=== PATIENT | male | born 1995 | race Caucasian/White ===

== ENCOUNTER 2017-09-01 09:33 | Emergency (ER) | payer SELFPAY ==
[2017-09-01 09:42] VITALS: TEMP 97.6; BMI 34.3
--- NOTE | 2017-09-01 09:56 | PDOC ---
History of Present Illness - General History Source: Patient, EMS - History of Present Illness Timing/Duration: other Associated Symptoms: denies: chest pain, fever/chills, headaches, nausea/ vomiting, shortness of breath <Maicol Cuellar - Last Filed: 09/01/17 10:34> <Windy Stevens - Last Filed: 09/01/17 11:51> - General Chief Complaint: Alcohol intoxication Stated Complaint: Alcohol intoxication Time Seen by Provider: 09/01/17 09:38 Past History - Past Medical History COPD: No Thyroid Disease: No - Suicide/Smoking/Psychosocial Hx Smoking History: Never smoked Have you smoked in the past 12 months: No Information on smoking cessation initiated: No Hx Alcohol Use: No Drug/Substance Use Hx: No Substance Use Type: Alcohol <Maicol Cuellar - Last Filed: 09/01/17 10:34> <Windy Stevens - Last Filed: 09/01/17 11:51> - Past Medical History Allergies/Adverse Reactions: Allergies Allergy/AdvReac Type Severity Reaction Status Date / Time No Known Allergies Allergy Verified 09/01/17 09:42 Review of Systems - Review of Systems Constitutional: No: Chills, Fever Respiratory: No: Shortness of Breath Cardiac (ROS): No: Chest Pain Neurological: No: Headache, Dizziness <Maicol Cuellar Last Filed: 09/01/17 10:34> *Physical Exam - Vital Signs Last Vital Signs Temp Pulse Resp BP Pulse Ox 97.6 F 109 H 18 148/86 100 09/01/17 09:37 09/01/17 09:37 09/01/17 09:37 09/01/17 09:37 09/01/17 09:37 - Physical Exam General Appearance: Yes: Appropriately Dressed, Alcohol on Breath HEENT: positive: Normal Voice Neck: positive: Supple Respiratory/Chest: positive: Lungs Clear, Normal Breath Sounds. negative: Respiratory Distress Cardiovascular: positive: Regular Rate, S1, S2 Gastrointestinal/Abdominal: positive: Soft. negative: Tender Integumentary: positive: Dry, Warm Neurologic: positive: Fully Oriented, Alert, Other (no tremors) <Maicol Cuellar Last Filed: 09/01/17 10:34> - Vital Signs Last Vital Signs Temp Pulse Resp BP Pulse Ox 97.6 F 95 H 16 130/82 100 09/01/17 09:37 09/01/17 10:35 09/01/17 10:35 09/01/17 10:35 09/01/17 10:35 <Windy Stevens - Last Filed: 09/01/17 11:51> Medical Decision Making - Medical Decision Making 09/01/17 09:51 22-year-old male denies any past medical history, brought in by EMS for alcohol intoxication. As per EMT report, family opened door to apt this am and found patient intoxicated and sleeping in front of apartment door and for unclear reasons called EMS to bring patient to the ER. Pt does report drinking rum early this am but denies having a h/o ETOH abuse. Denies any fall. No CLARK, dizziness, n/v or abdominal pain. Denies any illicit drugs See exam ETOH intox Mildly tachy but otherwise stable w/ no tremors and no e/o head injury A&O x 3 and stable on feet -period of obs for sobriety in ED -watch for signs of withdrawal 09/01/17 09:57 09/01/17 10:34 Pt requesting to be discharged. Is steady on his feet and remains alert and oriented. Rpt HR done by me at bedside is 100. Pt stable for discharge at this time 09/01/17 10:34 <Maicol Cuellar - Last Filed: 09/01/17 10:34> *DC/Admit/Observation/Transfer <Maicol Cuellar - Last Filed: 09/01/17 10:34> - Attestations Physician Attestion: I reviewed the case with the mid-level practitioner and agree with the mid- level practitioner's assessment, diagnosis and disposition. <Windy Stevens - Last Filed: 09/01/17 11:51> Diagnosis at time of Disposition: Alcohol intoxication Qualifiers: Complication of substance-induced condition: uncomplicated Qualified Code(s): F10.920 - Alcohol use, unspecified with intoxication, uncomplicated - Discharge Dispostion Disposition: HOME Condition at time of disposition: Improved - Patient Instructions Printed Discharge Instructions: DI for Alcohol Abuse Additional Instructions: Please follow-up with your primary physician - Post Discharge Activity Forms/Work/School Notes: Back to Work
[2017-09-01 11:11] VITALS: BP 130/82; PULSE 95
== END 2017-09-01 10:40 | disposition home or self-care (01) ==
LOC: JER 09:33
DX: F10.120 Alcohol abuse with intoxication, uncomplicated (principal)
CPT/HCPCS: 99282-25